=== PATIENT | female | born 1990 ===

== ENCOUNTER 2018-02-05 13:45 | Emergency (ER) | payer MEDICAID, OTHER ==
[2018-02-05] MEDS ORDERED: Naproxen 550 mg Tab PO STA (14:48)
[2018-02-05] MEDS ORDERED: Naproxen 550 mg Tab PO ONE (14:53)
[2018-02-05 15:20] VITALS: TEMP 98.7
--- NOTE | 2018-02-05 15:59 | C.PDOC ---
History Of Present Illness 27yo female complaints of left foot swelling for the past 2 weeks. She believes its from sleeping on it wrong. She denies any direct trauma. Patient has been taking Tylenol and Excedrin with transient relief of symptoms. Patient states she has been able to ambulate though it exacerbated the pain. Denies any weakness, numbness or changes in sensation. Time Seen by Provider: 02/05/18 14:04 Chief Complaint (Nursing): Lower Extremity Problem/Injury History Per: Patient History/Exam Limitations: no limitations Onset/Duration Of Symptoms: Days Current Symptoms Are (Timing): Still Present Past Medical History Reviewed: Historical Data, Nursing Documentation, Vital Signs Vital Signs: Last Vital Signs Temp 98.7 F 02/05/18 14:10 Pulse 72 02/05/18 16:07 Resp 18 02/05/18 16:07 BP 105/64 02/05/18 16:07 Pulse Ox 99 02/06/18 16:35 - Medical History PMH: Asthma Surgical History: No Surg Hx Family History: States: Unknown Family Hx - Social History Hx Tobacco Use: Yes Hx Alcohol Use: Yes Hx Substance Use: No - Immunization History Hx Tetanus Toxoid Vaccination: No Hx Influenza Vaccination: Yes (Oct 2017) Hx Pneumococcal Vaccination: No Review Of Systems Except As Marked, All Systems Reviewed And Found Negative. Musculoskeletal: Positive for: Foot Pain Neurological: Negative for: Weakness, Numbness Physical Exam - Physical Exam Appears: Non-toxic, No Acute Distress Skin: Normal Color, Warm, Dry Head: Atraumatic, Normacephalic Eye(s): bilateral: Normal Inspection, EOMI Nose: Normal Oral Mucosa: Moist Neck: Normal ROM, Supple Chest: Symmetrical Cardiovascular: Rhythm Regular Respiratory: Normal Breath Sounds Extremity: Normal ROM, Tenderness (mild tenderness dorsal aspect of left foot), Capillary Refill (< 2 seconds), No Deformity, Swelling (swelling to dorsal aspect of left foot), Other (No erythema) Extremity: Bilateral: Normal Color And Temperature, Normal ROM Pulses: Left Dorsalis Pedis: Normal, Right Dorsalis Pedis: Normal Neurological/Psych: Oriented x3, Normal Motor, Normal Sensation ED Course And Treatment O2 Sat by Pulse Oximetry: 99 (RA) Pulse Ox Interpretation: Normal Progress Note: Naproxen and Flexeril given. No XR -symptoms atraumatic. Patient had US Doppler with no acute findings. Patient instructed on RICE and informed to follow up with Orthopedist in 1-2 days. Jareth wrap also applied by stave grader. Disposition - Disposition Referrals: Rhys Alvarenga III, MD [Staff Provider] - Disposition: HOME/ ROUTINE Disposition Time: 15:58 Condition: STABLE Additional Instructions: Follow up with your primary medical doctor or clinic in 2-5 days for further evaluation. Take medications as prescribed. Return to the emergency department at any time if symptoms persist or worsen. Instructions: Foot Sprain (DC) Forms: [employer] (Telugu) - Clinical Impression Clinical Impression: Foot pain - PA / ASSISTANT SPA MANAGER / Resident Statement MD/DO has reviewed & agrees with the documentation as recorded. - Scribe Statement The provider has reviewed the documentation as recorded by the Scribe (Ramona Gifford) Provider Attestation: All medical record entries made by the Scribe were at my direction and personally dictated by me. I have reviewed the chart and agree that the record accurately reflects my personal performance of the history, physical exam, medical decision making, and the department course for this patient. I have also personally directed, reviewed, and agree with the discharge instructions and disposition.
[2018-02-05 16:07] VITALS: BP 105/64; PULSE 72; RESP 18
[2018-02-05 16:09] VITALS: O2SAT 99
--- NOTE | 2018-02-07 11:22 | VASCLAB ---
PROCEDURE: Left Lower Extremity Venous Duplex Exam. HISTORY: pain swelling PRIORS: None. TECHNIQUE: Left common femoral, femoral, popliteal and posterior tibial, peroneal and great saphenous veins were evaluated. Flow was assessed with color Doppler, compressibility, assessment of phasic flow and augmentation response. Report prepared by THERESA Mendez, RVT FINDINGS: LEFT: 1. Common Femoral Vein: 1.1. Compressibility - Fully compressible: Thrombus - None : Flow - Phasic: Augmentation -Normal: Reflux - None. 2. Femoral Vein: 2.1. Compressibility - Fully compressible: Thrombus - None: Flow - Phasic: Augmentation -Normal: Reflux - None. 3. Popliteal Vein: 3.1. Compressibility - Fully compressible: Thrombus - None: Flow - Phasic: Augmentation -Normal: Reflux - None. 4. Posterior Tibial Vein: 4.1. Compressibility - Fully compressible: Thrombus - None: Flow - Phasic: Augmentation -Normal: Reflux - None. 5. Peroneal Vein: 5.1. Compressibility - Fully compressible: Thrombus - None: Flow - Phasic: Augmentation -Normal: Reflux - None. 6. Great Saphenous Vein: 6.1. Compressibility - Fully compressible: Thrombus - None: Flow - Phasic: Augmentation - Normal: Reflux - Severe. OTHER FINDINGS: IMPRESSION: No evidence of deep or superficial vein thrombosis of the left lower extremity with excellent venous flow. Severe valvular incompetence of the left greater saphenous vein. Normal venous flow noted in the right common femoral vein.
== END 2018-02-05 16:21 | disposition home or self-care (01) ==
LOC: C.ER 13:45
DX: M79.672 Pain in left foot (principal)